=== PATIENT | male | born 2000 ===

== ENCOUNTER 2020-04-16 09:43 | Outpatient (REF) | payer OTHER, SELFPAY ==
[2020-04-20 13:16] LABS: SARS-CoV-2 RNA Undetected (Undetected); SARS-CoV-2 Specimen Source Nasopharynx
== END 2020-04-16 10:03 ==
LOC: NCHCN 09:43
PROVIDERS: Visit Provider Physician Assistant
DX: Z20.828 Contact with and (suspected) exposure to other viral communicable diseases (principal)
CPT/HCPCS: U0003

== ENCOUNTER 2020-08-12 22:06 | Outpatient (REF) | payer OTHER, SELFPAY ==
[2020-08-12 19:57] LABS: ALT 31 U/L (16-63); AST 22 U/L (15-37); Albumin 4.7 g/dL (3.4-5.0); Alkaline Phosphatase 64 U/L (46-116); Anion Gap 7.5 mmol/L (3-11); BUN 12 mg/dL (7-18); Bilirubin, Total 0.7 mg/dL (0.2-1.0); CO2 30.5 mmol/L (21.0-32.0); CREATININE 1.01 mg/dL (0.70-1.30); Calcium 9.1 mg/dL (8.5-10.1); Calculated LDL 108 mg/dL (<100); Chloride 104 mmol/L (98-107); Cholesterol 176 mg/dL (<200); Glucose 83 mg/dL (74-106); HDL Cholesterol 55 mg/dL (40-60); Potassium 4.2 mmol/L (3.5-5.1); Sodium 142 mmol/L (136-145); Total Protein 8.1 g/dL (6.4-8.2); Triglyceride 65 mg/dL (<150)
== END 2020-08-12 22:26 ==
LOC: NCHCN 22:06
PROVIDERS: Visit Provider Physician Assistant
DX: Z00.00 Encounter for general adult medical examination without abnormal findings (principal); Z13.220 Encounter for screening for lipoid disorders; Z13.1 Encounter for screening for diabetes mellitus; D21.9 Benign neoplasm of connective and other soft tissue, unspecified; L30.9 Dermatitis, unspecified
CPT/HCPCS: 80053; 80061